=== PATIENT | male | born 1975 | race African-American/Black ===

== ENCOUNTER 2016-11-27 12:34 | Emergency (ER) | payer OTHER ==
[~2016-11-27] VITALS: Ht 193 cm; Wt 108.9 kg
[2016-11-27 12:50] VITALS: BP_SYST 144
[2016-11-27] MEDS ORDERED: ONDANSETRON 4 MG ODT TAB PO ONE (13:00)
[2016-11-27] MEDS ORDERED: ACETAMINOPHEN 325 MG TABLET PO ONE (13:00)
== END 2016-11-27 14:09 | disposition left against medical advice (07) ==
LOC: SED 12:34
DX: S09.90XA Unspecified injury of head, initial encounter (principal); Z53.20 Procedure and treatment not carried out because of patient's decision for unspecified reasons; W18.09XA Striking against other object with subsequent fall, initial encounter; Y93.89 Activity, other specified; Y92.89 Other specified places as the place of occurrence of the external cause; Y99.8 Other external cause status
CPT/HCPCS: 70450; 72125; 99284; Q0162